=== PATIENT | male | born 1960 | race Caucasian/White ===

== ENCOUNTER 2016-04-19 11:06 | Emergency (ER) | payer BC, OTHER ==
[2016-04-19 11:23] VITALS: BP 118/70
--- NOTE | 2016-04-19 12:03 | RAD ---
INDICATION: Left wrist injury. TECHNIQUE: 3 views of the left wrist were obtained. FINDINGS: The bones are in normal alignment. No fracture is seen. Joint spaces appear maintained. IMPRESSION: NO EVIDENCE FOR FRACTURE, IF THE PATIENT'S SYMPTOMS PERSIST, RECOMMEND FOLLOW-UP IMAGING.
--- NOTE | 2016-04-24 07:12 | UC ---
Hand/Wrist HPI - HPI Summary HPI Summary: left wrist pain x 4 days . dropped a brake chamber on his left wrist 4 days ago. + pain and swelling, not getting better . - History Of Current Complaint Chief Complaint: UCUpperExtremity Stated Complaint: LEFT WRIST PAIN Time Seen by Provider: 04/19/16 11:35 Hx Obtained From: Patient Onset/Duration: Sudden Onset, Lasting Days - 4 Pain Intensity: 2 Pain Scale Used: 0-10 Numeric Character Of Pain: Aching Aggravating Factor(s): Movement, Lifting, Flexion, Extension, Twisting Alleviating: Rest, Ice Associated Signs And Symptoms: Positive: Swelling, Weakness. Negative: Redness , Bruising, Numbness/Tingling - Allergies/Home Medications Allergies/Adverse Reactions: Allergies Allergy/AdvReac Type Severity Reaction Status Date / Time Hydromorphone [From Dilaudid] Allergy Facial Verified 04/19/16 11:15 Redness/Flushing Prednisone AdvReac See Comment Verified 04/19/16 11:15 Home Medications: Home Medications Irbesartan mg PO BID 04/19/16 [History] PMH/Surg Hx/FS Hx/Imm Hx Endocrine History Of: Reports: Diabetes Denies: Thyroid Disease Cardiovascular History Of: Reports: Cardiac Disorders - Angina, Triple Bypass, Hypertension Denies: Pacemaker/ICD Respiratory History Of: Reports: Pneumonia Denies: COPD, Asthma GI/ History Of: Reports: Kidney Stones Denies: Ulcer, Renal Disease Neurological History Of: Reports: TIA - 2013. ? - Surgical History Surgical History: Yes Surgery Procedure, Year, and Place: open heart surgery 2006 - Triple Bypass OP REPORT FROM [facility] DR. KATERYNA PAT;. R. wrist as a kid ;. Tonsillectomy ;. [facility] [place] CARDIAC CATH X 3 09/2004; 06/2006, 11/2011 NO STENTS PLACED @ [facility] [place] ;. CARDIAC STENTS PLACED : SEPTEMBER 2004 [facility] TAXUS STENTS X3, LIBERTE STENT X1 (MRI CONDITIONAL 1.5T ONLY D/T 700 G/CM LIMIT MUST SCAN IN NORMAL MODE). NOV 2011 [facility] XIENCE PRIME X1, XIENCE X1 (MRI CONDITIONAL 1.5 OR 3T 2500 G/CM LIMIT). MRI SAFETY: NORMAL MODE @ 1.5 T ONLY - Family History Known Family History: Positive: Diabetes - Social History Alcohol Use: Weekly Substance Use Type: None Smoking Status (MU): Former Smoker Type: Cigarettes Length of Time of Smoking/Using Tobacco: 20 years Have You Smoked in the Last Year: No When Did the Patient Quit Smoking/Using Tobacco: 2004 - Immunization History Most Recent Tetanus Shot: unknown Review of Systems Constitutional: Negative Skin: Negative Eyes: Negative ENT: Negative Respiratory: Negative Cardiovascular: Negative All Other Systems Reviewed And Are Negative: Yes Physical Exam Triage Information Reviewed: Yes Appearance: Well-Appearing, No Pain Distress, Obese Vital Signs: Initial Vital Signs Temp 99.1 F 04/19/16 11:13 Pulse 70 04/19/16 11:13 Resp 16 04/19/16 11:13 BP 118/70 04/19/16 11:13 Pulse Ox 99 04/19/16 11:13 Vital Signs Reviewed: Yes Eyes: Positive: Conjunctiva Clear ENT: Positive: Normal ENT inspection, Hearing grossly normal, Pharynx normal Neck exam: Normal Neck: Positive: Supple, Nontender, No Lymphadenopathy Respiratory: Positive: Chest non-tender, Lungs clear, Normal breath sounds Cardiovascular: Positive: RRR, No Murmur, Pulses Normal Musculoskeletal: Positive: Other: - left wrist : no swelling, no erythema, + diffuse tenderness, good ROM on flexion and extension , strength intact Hand/Wrist Course/Dx - Differential Dx/Diagnosis Provider Diagnoses: contusion left wrist Discharge - Discharge Plan Condition: Stable Disposition: HOME Prescriptions: Naproxen [Naproxen 500 MG TABS] 500 mg PO BID #20 tab Patient Education Materials: Contusion in Adults (ED) Forms: *Work Release Referrals: Vamsi MARTELL,Perez Overton [Nurse Practitioner] - 7 Days Additional Instructions: CONTUSION OF LEFT HAND / WRIST, XRAY : NO FRACTURE SEEN USE ICE FOR 15 MIN 3 X PER DAY NAPRXYN 2 X PER DAY NEEDED FOR PAIN FOLLOW UP WITH YOUR PCP IN ONE WEEK IF NOT BETTER .
== END 2016-04-19 12:30 | disposition home or self-care (01) ==
LOC: UCCORT 11:06
DX: S60.212A Contusion of left wrist, initial encounter (principal); W20.8XXA Other cause of strike by thrown, projected or falling object, initial encounter; Y93.9 Activity, unspecified; Y92.9 Unspecified place or not applicable; I10 Essential (primary) hypertension; Z88.5 Allergy status to narcotic agent; Z88.8 Allergy status to other drugs, medicaments and biological substances; Z87.891 Personal history of nicotine dependence
CPT/HCPCS: 99212; G0463